=== PATIENT | male | born 1985 | race African-American/Black ===

== ENCOUNTER 2022-11-05 23:23 | Emergency (ER) | payer OTHER ==
[2022-11-05 23:31] VITALS: BP 128/72; PULSE 81; RESP 16; TEMP 98.8; BMI 38.0
[2022-11-06 01:01] LABS: PH,URINE 6.5 (5.0-8.0); URINE APPEARANCE CLEAR; URINE BILIRUBIN NEGATIVE (NEGATIVE); URINE COLOR YELLOW; URINE GLUCOSE (UA) NEGATIVE (NEGATIVE); URINE KETONE TRACE (NEGATIVE); URINE LEUK ESTERASE NEGATIVE (NEGATIVE); URINE NITRITE NEGATIVE (NEGATIVE); URINE PROTEIN NEGATIVE (NEGATIVE)
[2022-11-06 02:04] LABS: BASO % 0.9 % (0-2.0); EOS % 4.3 % (0-4.5); HEMATOCRIT 40.4 % (35.4-49); HEMOGLOBIN 12.9 GM/dL (11.7-16.9); LYMPH % 33.9 % (8-40); MCH 25.1 pg (25.7-33.7); MEAN CELL VOLUME 78.4 fl (80-96); MEAN PLT VOLUME 8.4 fl (7.5-11.1); MONO % 10.4 % (3.8-10.2); NEUT % 50.5 % (42.8-82.8); PLATELET COUNT 217 10^3/uL (134-434); RBC 5.15 M/mm3 (4.00-5.60); WHITE BLOOD COUNT 7.1 K/mm3 (4.0-10.0)
[2022-11-06 02:19] LABS: POTASSIUM 3.3 mmol/L (3.5-5.1)
[2022-11-06 02:21] LABS: CALCIUM 7.4 mg/dL (8.5-10.1)
[2022-11-06 02:22] LABS: ALBUMIN 3.3 g/dl (3.4-5.0); BLOOD UREA NITROGEN 9.9 mg/dL (7-18)
[2022-11-06 02:25] LABS: CREATININE 0.7 mg/dL (0.55-1.3)
[2022-11-06 02:27] LABS: BILIRUBIN,TOTAL 0.2 mg/dL (0.2-1); TOT PROT 6.2 g/dl (6.4-8.2)
[2022-11-06] MEDS ORDERED: POTASSIUM CHLORIDE TABS 20 MEQ TABLET.ER (FP) PO ONE ×2 (02:31→02:41)
== END 2022-11-06 03:50 | disposition home or self-care (01) ==
LOC: JER 23:23
DX: R50.9 Fever, unspecified (principal); R61 Generalized hyperhidrosis; Z20.822 Contact with and (suspected) exposure to COVID-19
CPT/HCPCS: 0241U-QW; 36415; 71045-TC-FY; 80053; 81003; 83605; 85025; 86359; 86360; 86480; 99284-25